=== PATIENT | male | born 1970 | race African-American/Black ===

== ENCOUNTER 2017-04-01 11:44 | Inpatient (IN) | payer SELFPAY ==
[~2017-04-01] VITALS: Ht 177.8 cm; Wt 68.5 kg
[~2017-04-01 11:44] MED LIST: NORVASC
[2017-04-01] MEDS ORDERED: PHENYTOIN SODIUM 1,000 MG in SODIUM CHLORIDE 0.9% 100 ML IV ONE (12:45)
[2017-04-01 12:56] LABS: EOSINOPHILS % 1.3 % (0.0-5.0); HEMATOCRIT. 37.9 % (42.0-52.0); HEMOGLOBIN. 13.1 g/dL (14.0-18.0); LYMPHOCYTES % 20.8 % (20.0-50.0); MEAN CORPUSCULAR HEMOGLOBIN 33.1 pg (28.0-32.0); MEAN CORPUSCULAR VOLUME 96.3 fL (80.0-94.0); MEAN PLATELET VOLUME 8.4 fl (7.4-10.4); MONOCYTES % 12.8 % (2.0-8.0); NEUTROPHILS % 64.1 % (40.0-76.0); PLATELET 94 x1000/uL (130-400); RED BLOOD CELL COUNT 3.94 mill/uL (4.7-6.1); RED CELL DISTRIBUTION WIDTH 13.9 % (11.6-14.6)
[2017-04-01 13:10] LABS: CARBON DIOXIDE 30 mEq/L (21-32); CHLORIDE 97 mEq/L (98-107); ETHANOL BLOOD 282 mg/dL
[2017-04-01 16:16] LABS: CLARITY URINE CLEAR (CLEAR); COLOR URINE YELLOW (YELLOW); GLUCOSE URINE NEGATIVE (NEGATIVE); KETONES URINE NEGATIVE (NEGATIVE); LEUKOCYTE ESTERASE URINE NEGATIVE (NEGATIVE); NITRITE URINE NEGATIVE (NEGATIVE); OCCULT BLOOD URINE 1+ (NEGATIVE); PH URINE 6.5 (4.5-8.0); PROTEIN URINE 2+ (NEGATIVE); SPECIFIC GRAVITY URINE 1.011 (1.005-1.030)
[2017-04-01 16:32] LABS: *AMPHETAMINES SCREEN URINE NEGATIVE (NEGATIVE); *BARBITURATES SCREEN URINE NEGATIVE (NEGATIVE); *BENZODIAZEPINES SCREEN URINE NEGATIVE (NEGATIVE); *COCAINE SCREEN URINE NEGATIVE (NEGATIVE); CANNABINOID URINE SCREEN PRESUMTIVE POSITIVE (NEGATIVE); METHADONE URINE SCREEN NEGATIVE (NEGATIVE); OPIATES URINE SCREEN NEGATIVE (NEGATIVE); PHENCYCLIDINE URINE SCREEN NEGATIVE (NEGATIVE)
[2017-04-01] MEDS ORDERED: ONDANSETRON HCL 4MG/2ML VIAL IV PRN ×2 (19:00→23:15)
[2017-04-01] MEDS ORDERED: IPRATROPIUM/ALBUTEROL 0.5-3(2.5)MG/3ML NEB INH PRN ×2 (19:00→23:15)
[2017-04-01 22:00] VITALS: BP_SYST 145; BP_SYST 148; BP_DIAS 95; BP_DIAS 99
[2017-04-01] MEDS ORDERED: AMLODIPINE 10MG TABLET PO NR (23:15)
[2017-04-01] MEDS ORDERED: DOCUSATE SODIUM 100MG CAPSULE PO PRN (23:15)
[2017-04-01] MEDS ORDERED: ACETAMINOPHEN 650MG SUPP PR PRN (23:15)
[2017-04-01] MEDS ORDERED: MAGNESIUM/ALUMINUM HYDROXIDE/SIMETHICONE 30ML UDC PO PRN (23:15)
[2017-04-01] MEDS ORDERED: ACETAMINOPHEN 325MG TABLET PO PRN (23:15)
[2017-04-01] MEDS ORDERED: GUAIFENESIN 200MG/10ML SUGAR FREE UDC PO PRN (23:15)
[2017-04-01] MEDS ORDERED: NA PHOS,M-B/NA PHOS,DI-BA ENEMA 118ML PR PRN (23:15)
[2017-04-01] MEDS ORDERED: ACETAMINOPHEN 650MG/20.3ML UDC GT PRN (23:15)
[2017-04-02] VITALS: BP 174/121
[2017-04-02] MEDS: SODIUM CHLORIDE 0.9% INJ 3ML FLUSH IVF SCH ×2 (00:16→07:44)
[2017-04-02] MEDS: AMLODIPINE 10MG TABLET PO SCH ×2 (00:16→08:16)
[2017-04-02] MEDS: DIPHENHYDRAMINE 50MG/ML VIAL IV PRN ×3 (02:24→21:47)
[2017-04-02 04:00] VITALS: BP 167/120
[2017-04-02] MEDS: LORAZEPAM 2MG/ML CPJ IV PRN ×2 (05:19→23:54)
[2017-04-02] MEDS ORDERED: SODIUM CHLORIDE 0.9% INJ 3ML FLUSH IVF SCH (06:00)
[2017-04-02 06:08] LABS: EOSINOPHILS % 1.9 % (0.0-5.0); HEMATOCRIT. 38.2 % (42.0-52.0); HEMOGLOBIN. 13.1 g/dL (14.0-18.0); LYMPHOCYTES % 21.2 % (20.0-50.0); MEAN CORPUSCULAR VOLUME 96.4 fL (80.0-94.0); MEAN PLATELET VOLUME 8.9 fl (7.4-10.4); NEUTROPHILS % 62.9 % (40.0-76.0); PLATELET 88 x1000/uL (130-400); RED BLOOD CELL COUNT 3.96 mill/uL (4.7-6.1); RED CELL DISTRIBUTION WIDTH 14.1 % (11.6-14.6)
[2017-04-02 08:00] VITALS: BP 148/99
[2017-04-02] MEDS: LEVETIRACETAM 500MG TABLET PO SCH ×2 (08:17→21:47)
[2017-04-02 13:00] VITALS: BP 152/92
[2017-04-02 16:00] VITALS: BP_SYST 151; BP_SYST 161; BP_DIAS 94
[2017-04-02 20:00] VITALS: BP 142/106
[2017-04-02] MEDS: CLONIDINE 0.1MG TABLET PO PRN (23:54)
[2017-04-03] VITALS: BP 156/121
[2017-04-03 04:00] VITALS: BP 131/100
[2017-04-03] MEDS: CLONIDINE 0.1MG TABLET PO PRN (05:59)
[2017-04-03 08:00] VITALS: BP 134/97
[2017-04-03] MEDS: AMLODIPINE 10MG TABLET PO SCH (09:10)
[2017-04-03] MEDS: LEVETIRACETAM 500MG TABLET PO SCH ×2 (09:10→20:03)
[2017-04-03 12:00] VITALS: BP 128/94
[2017-04-03] MEDS ORDERED: PERMETHRIN 5% CREAM 60GM TOP SCH (13:00)
[2017-04-03 16:00] VITALS: BP 127/72
[2017-04-03] MEDS: FOLIC ACID 1MG TABLET PO SCH (16:56)
[2017-04-03] MEDS: THIAMINE HCL 100MG TABLET PO SCH (16:56)
[2017-04-03 18:18] LABS: BASOPHILS % 1.1 % (0.0-2.0); EOSINOPHILS % 2.5 % (0.0-5.0); HEMATOCRIT. 39.4 % (42.0-52.0); HEMOGLOBIN. 13.2 g/dL (14.0-18.0); LYMPHOCYTES % 25.5 % (20.0-50.0); MEAN CORPUSCULAR HEMOGLOBIN 32.8 pg (28.0-32.0); MEAN CORPUSCULAR VOLUME 97.7 fL (80.0-94.0); MEAN PLATELET VOLUME 9.5 fl (7.4-10.4); MONOCYTES % 14.5 % (2.0-8.0); NEUTROPHILS % 56.4 % (40.0-76.0); PLATELET 104 x1000/uL (130-400); RED BLOOD CELL COUNT 4.03 mill/uL (4.7-6.1); RED CELL DISTRIBUTION WIDTH 13.8 % (11.6-14.6)
[2017-04-03 18:22] LABS: AMMONIA 61 uMol/L (<32)
[2017-04-03 18:24] LABS: CARBON DIOXIDE 28 mEq/L (21-32); CHLORIDE 96 mEq/L (98-107)
[2017-04-03 20:00] VITALS: BP 126/97
[2017-04-03] MEDS: LORAZEPAM 2MG/ML CPJ IV PRN (20:03)
[2017-04-03] MEDS ORDERED: POTASSIUM CHLORIDE 20MEQ TABLET SR PO NR (21:27)
[2017-04-03] MEDS: LACTULOSE 20G/30ML UDC PO SCH (21:46)
[2017-04-04] VITALS: BP 124/95
[2017-04-04 04:00] VITALS: BP 146/106
[2017-04-04 08:00] VITALS: BP 121/88
[2017-04-04] MEDS: LACTULOSE 20G/30ML UDC PO SCH ×2 (10:43→17:02)
[2017-04-04] MEDS: AMLODIPINE 10MG TABLET PO SCH (10:43)
[2017-04-04] MEDS: LEVETIRACETAM 500MG TABLET PO SCH ×2 (10:43→21:28)
[2017-04-04] MEDS: THIAMINE HCL 100MG TABLET PO SCH (10:43)
[2017-04-04] MEDS: FOLIC ACID 1MG TABLET PO SCH (10:43)
[2017-04-04 12:00] VITALS: BP 127/103
[2017-04-04] MEDS: DIPHENHYDRAMINE 50MG/ML VIAL IV PRN (12:05)
[2017-04-04] MEDS: LORAZEPAM 2MG/ML CPJ IV PRN (12:05)
[2017-04-04 16:00] VITALS: BP 131/101
[2017-04-04] MEDS ORDERED: Vitamin B Comp W-C PO (16:23)
[2017-04-04] MEDS ORDERED: KEPP500 PO (16:23)
[2017-04-04] MEDS ORDERED: LACT10SO7 PO (16:23)
[2017-04-04] MEDS: VITAMIN B / W-C 1 TAB PO SCH (17:04)
[2017-04-04 20:00] VITALS: BP 144/102
[2017-04-04 20:32] LABS: HEMATOCRIT. 39.8 % (42.0-52.0); HEMOGLOBIN. 13.4 g/dL (14.0-18.0); MEAN CORPUSCULAR HEMOGLOBIN 32.6 pg (28.0-32.0); MEAN CORPUSCULAR VOLUME 96.8 fL (80.0-94.0); MEAN PLATELET VOLUME 9.4 fl (7.4-10.4); PLATELET 127 x1000/uL (130-400); RED BLOOD CELL COUNT 4.11 mill/uL (4.7-6.1); RED CELL DISTRIBUTION WIDTH 13.4 % (11.6-14.6)
[2017-04-04 20:38] LABS: CHLORIDE 99 mEq/L (98-107)
[2017-04-04 20:46] LABS: CARBON DIOXIDE 27 mEq/L (21-32)
[2017-04-04 21:20] LABS: PLATELET ESTIMATE DECREASED
[2017-04-04] MEDS: CLONIDINE 0.1MG TABLET PO PRN (21:28)
[2017-04-05] VITALS: BP 123/73
[2017-04-05 04:00] VITALS: BP 118/69
[2017-04-05 08:00] VITALS: BP 132/110
[2017-04-05] MEDS: LACTULOSE 20G/30ML UDC PO SCH (08:33)
[2017-04-05] MEDS: THIAMINE HCL 100MG TABLET PO SCH (08:33)
[2017-04-05] MEDS: FOLIC ACID 1MG TABLET PO SCH (08:33)
[2017-04-05] MEDS: AMLODIPINE 10MG TABLET PO SCH (08:34)
[2017-04-05] MEDS: LEVETIRACETAM 500MG TABLET PO SCH (08:35)
[2017-04-05] MEDS: VITAMIN B / W-C 1 TAB PO SCH (08:53)
[2017-04-05 10:19] VITALS: BP 132/103
== END 2017-04-05 10:35 | disposition home or self-care (01) | DRG 53 ==
LOC: ER 11:49 → 6EST 15:56 → 5WST 15:56 → UNDOADMIN 15:56 → ENRESERV 19:02 → EDBEDREQSVC 20:25
PROVIDERS: ADMIT Family Medicine; ATTEND Family Medicine
DX: G40.901 Epilepsy, unspecified, not intractable, with status epilepticus (principal); G93.40 Encephalopathy, unspecified; E44.1 Mild protein-calorie malnutrition; G62.9 Polyneuropathy, unspecified; B86 Scabies; D63.8 Anemia in other chronic diseases classified elsewhere; I10 Essential (primary) hypertension; F20.9 Schizophrenia, unspecified; F12.90 Cannabis use, unspecified, uncomplicated; Y90.8 Blood alcohol level of 240 mg/100 ml or more; R73.9 Hyperglycemia, unspecified; R26.81 Unsteadiness on feet; F10.229 Alcohol dependence with intoxication, unspecified; Z68.21 Body mass index [BMI] 21.0-21.9, adult; I25.2 Old myocardial infarction; Z86.73 Personal history of transient ischemic attack (TIA), and cerebral infarction without residual deficits; Z86.11 Personal history of tuberculosis
CPT/HCPCS: 36415; 70450; 72131; 76700; 80053; 80061; 80076; 80305; 81001; 82140; 82248; 83036; 85025; 96365; 97116; 97162; 99285; G0482; J1165; J1200; J2060; J7050

== ENCOUNTER 2018-04-04 09:49 | Emergency (ER) | payer MEDICAID ==
[~2018-04-04] VITALS: Ht 177.8 cm; Wt 95.0 kg
[~2018-04-04 09:49] MED LIST changes: +KEPP500 PO; +LACT10SO7 PO; -NORVASC; +Vitamin B Comp W-C PO
[2018-04-04] MEDS ORDERED: PHENYTOIN SODIUM 1,000 MG in SODIUM CHLORIDE 0.9% 100 ML IV ONE (11:15)
[2018-04-04] MEDS ORDERED: SODIUM CHLORIDE 0.9% 1,000 ML IV ONE (11:15)
[2018-04-04] MEDS ORDERED: LORAZEPAM 2MG/ML CPJ IV ONE (13:30)
[2018-04-04] MEDS ORDERED: AMLODIPINE 5MG TABLET PO ONE (13:45)
[2018-04-04 16:08] VITALS: BP 169/97
== END 2018-04-04 16:20 | disposition home or self-care (01) ==
LOC: ER 10:58
DX: R56.9 Unspecified convulsions (principal); F10.229 Alcohol dependence with intoxication, unspecified; I10 Essential (primary) hypertension; I25.2 Old myocardial infarction; Z91.14 Patient's other noncompliance with medication regimen; Z86.73 Personal history of transient ischemic attack (TIA), and cerebral infarction without residual deficits; Z86.11 Personal history of tuberculosis; Z88.8 Allergy status to other drugs, medicaments and biological substances
CPT/HCPCS: 96365; 96366; 96375; 99285; J1165; J2060; J7030; J7050

== ENCOUNTER 2018-08-10 13:51 | Emergency (ER) | payer MEDICAID ==
[~2018-08-10] VITALS: Ht 165.1 cm; Wt 73.0 kg
[2018-08-10] MEDS ORDERED: PHENYTOIN SODIUM EXTENDED 100MG CAPSULE PO ONE (15:45)
[2018-08-10 15:59] LABS: BASOPHILS % 0.8 % (0.0-2.0); EOSINOPHILS % 0.7 % (0.0-5.0); HEMATOCRIT. 40.4 % (42.0-52.0); HEMOGLOBIN. 13.9 g/dL (14.0-18.0); LYMPHOCYTES % 23.5 % (20.0-50.0); MEAN CORPUSCULAR HEMOGLOBIN 33.6 pg (28.0-32.0); MEAN CORPUSCULAR VOLUME 97.5 fL (80.0-94.0); MEAN PLATELET VOLUME 9.1 fl (7.4-10.4); MONOCYTES % 11.2 % (2.0-8.0); NEUTROPHILS % 63.8 % (40.0-76.0); PLATELET 151 x1000/uL (130-400); RED BLOOD CELL COUNT 4.15 mill/uL (4.7-6.1)
[2018-08-10 16:09] LABS: CHLORIDE 99 mEq/L (98-107)
[2018-08-10] MEDS ORDERED: SODIUM CHLORIDE 0.9% 1,000 ML IV ONE (17:15)
[2018-08-10 20:38] VITALS: BP 161/92
== END 2018-08-10 20:52 | disposition home or self-care (01) ==
LOC: ER 13:51
DX: G40.909 Epilepsy, unspecified, not intractable, without status epilepticus (principal); E87.6 Hypokalemia; I11.9 Hypertensive heart disease without heart failure; I69.351 Hemiplegia and hemiparesis following cerebral infarction affecting right dominant side
CPT/HCPCS: 36415; 80053; 83605; 85025; 87040; 96360; 96361; 99285; J7030; Z7610

== ENCOUNTER 2019-07-23 10:36 | Emergency (ER) | payer MEDICAID ==
[~2019-07-23] VITALS: Ht 172.7 cm; Wt 75.0 kg
[2019-07-23] MEDS ORDERED: LEVETIRACETAM 1000MG/100ML 100 ML IV ONE (11:00)
[2019-07-23 11:21] LABS: HEMATOCRIT. 42.2 % (42.0-52.0); HEMOGLOBIN. 14.1 g/dL (14.0-18.0); MEAN CORPUSCULAR HEMOGLOBIN 32.6 pg (28.0-32.0); MEAN CORPUSCULAR VOLUME 97.3 fL (80.0-94.0); MEAN PLATELET VOLUME 8.1 fl (7.4-10.4); PLATELET 247 x1000/uL (130-400); RED BLOOD CELL COUNT 4.34 mill/uL (4.7-6.1); RED CELL DISTRIBUTION WIDTH 13.6 % (11.6-14.6)
[2019-07-23 11:23] LABS: CHLORIDE 101 mEq/L (98-107)
[2019-07-23 11:28] LABS: ETHANOL BLOOD 42 mg/dL
[2019-07-23 11:50] LABS: PLATELET ESTIMATE NORMAL
[2019-07-23 15:50] VITALS: BP 128/77
== END 2019-07-23 15:51 | disposition home or self-care (01) ==
LOC: ER 10:36
DX: I63.81 Other cerebral infarction due to occlusion or stenosis of small artery (principal); G40.909 Epilepsy, unspecified, not intractable, without status epilepticus; S00.83XA Contusion of other part of head, initial encounter; I11.9 Hypertensive heart disease without heart failure; W18.39XA Other fall on same level, initial encounter; Y93.89 Activity, other specified; F10.20 Alcohol dependence, uncomplicated; Y90.2 Blood alcohol level of 40-59 mg/100 ml; Y92.521 Bus station as the place of occurrence of the external cause; Z79.899 Other long term (current) drug therapy
CPT/HCPCS: 36415; 70450; 70486; 80053; 80320; 85025; 96365; 96366; 99284; J1953; G0480

== ENCOUNTER 2019-07-24 13:16 | Emergency (ER) | payer MEDICAID ==
[~2019-07-24] VITALS: Ht 177.8 cm; Wt 77.1 kg
[2019-07-24 18:00] VITALS: BP 158/70
== END 2019-07-24 18:47 | disposition home or self-care (01) ==
LOC: ER 13:16
DX: I11.9 Hypertensive heart disease without heart failure (principal); E78.00 Pure hypercholesterolemia, unspecified; I25.2 Old myocardial infarction; G40.909 Epilepsy, unspecified, not intractable, without status epilepticus; Z86.73 Personal history of transient ischemic attack (TIA), and cerebral infarction without residual deficits; Z98.890 Other specified postprocedural states; Z91.013 Allergy to seafood
CPT/HCPCS: 70551; 82962; 99284